=== PATIENT | male | born 1960 | race Caucasian/White ===

== ENCOUNTER 2017-12-12 10:37 | Emergency (ER) | payer BC ==
[2017-12-12 11:34] VITALS: BP 136/77
--- NOTE | 2017-12-12 12:16 | UC ---
Throat Pain/Nasal Yonny HPI - HPI Summary HPI Summary: 57 yo male states he has ulcerations on his palate states he gets them often and his MD gives him a mouth wash and strong antibiotics like augment [place] no cp or sob he is a diabetic - History of Current Complaint Chief Complaint: UCGeneralIllness Stated Complaint: SORE THROAT Time Seen by Provider: 12/12/17 12:05 Onset/Duration: Gradual Onset, Lasting Days Severity: Mild Pain Intensity: 4 Pain Scale Used: 0-10 Numeric Cough: None Associated Signs & Symptoms: Positive: Negative - Epiglottits Risk Factors Epiglottis Risk Factors: Negative - Allergies/Home Medications Allergies/Adverse Reactions: Allergies Allergy/AdvReac Type Severity Reaction Status Date / Time No Known Allergies Allergy Verified 12/12/17 11:34 Home Medications: Home Medications Rosuvastatin (NF) [Crestor (NF)] 10 mg PO DAILY 12/12/17 [History Confirmed ] PMH/Surg Hx/FS Hx/Imm Hx Previously Healthy: Yes Endocrine History: Diabetes Cardiovascular History: Hypertension - Surgical History Surgical History: Yes Surgery Procedure, Year, and Place: appendectomy 1982. 4 leg surgeries 1975- 2008. Back - Family History Known Family History: Positive: Cardiac Disease, Hypertension, Diabetes - Social History Alcohol Use: Rare Substance Use Type: None Smoking Status (MU): Never Smoked Tobacco Type: Smokeless Tobacco Review of Systems Constitutional: Negative Skin: Negative Eyes: Negative ENT: Negative Respiratory: Negative Cardiovascular: Negative Gastrointestinal: Negative Genitourinary: Negative Motor: Negative Neurovascular: Negative Musculoskeletal: Negative Neurological: Negative Psychological: Negative Is Patient Immunocompromised?: No All Other Systems Reviewed And Are Negative: Yes Physical Exam Triage Information Reviewed: Yes Appearance: Well-Appearing, No Pain Distress, Well-Nourished Vital Signs: Initial Vital Signs Temp 97.9 F 12/12/17 11:26 Pulse 60 12/12/17 11:26 Resp 16 12/12/17 11:26 BP 136/77 12/12/17 11:26 Pulse Ox 96 12/12/17 11:26 Vital Signs Reviewed: Yes Eyes: Positive: Conjunctiva Clear ENT: Positive: Hearing grossly normal, Uvula midline, Other - palate has a few ulcerations. Negative: Nasal congestion, Nasal drainage, Tonsillar swelling, Tonsillar exudate Dental Exam: Normal Neck: Positive: Supple, Nontender, No Lymphadenopathy Respiratory: Positive: Lungs clear, Normal breath sounds, No respiratory distress Neurological: Positive: Alert Psychological Exam: Normal Skin Exam: Normal Throat Pain/Nasal Course/Dx - Differential Dx/Diagnosis Provider Diagnoses: oral ulcerations Discharge - Sign-Out/Discharge Documenting (check all that apply): Discharge - Discharge Plan Condition: Stable Disposition: HOME Prescriptions: Amoxicillin/Clavulanate TAB* [Augmentin TAB 875*] 875 mg PO BID #14 tab Magic Mouth Was-INO/MAAL/LIDO* 10 ml SWISH SPIT QID PRN #240 ml PRN Reason: Pain Patient Education Materials: Canker Sores (ED) Referrals: Gracy Conrad MD [Primary Care Provider] - If Needed
== END 2017-12-12 12:25 | disposition home or self-care (01) ==
LOC: UCCORT 10:37
DX: K12.1 Other forms of stomatitis (principal)
CPT/HCPCS: 99212; G0463